=== PATIENT | male | born 1970 | race Hispanic/Latino ===

== ENCOUNTER 2024-05-06 09:33 | Emergency (ER) | payer OTHER, SELFPAY ==
[2024-05-06 09:42] VITALS: BP 141/80; PULSE 78; RESP 16; TEMP 36.9; O2SAT 97; BMI 28.4
--- NOTE | 2024-05-06 11:14 | ED_ITS ---
HPI - Neck Pain/Injury <Fany Tam PA-C - Last Filed: 05/06/24 13:32> General Chief Complaint: Neck Pain/Injury Stated Complaint: LT side neck swollen; px when swallowing Time Seen by Provider: 05/06/24 11:20 Mode of arrival: Family Vehicle History of Present Illness HPI Narrative: Mr. Lee is a very pleasant 53-year-old gentleman with a past medical history of hyperlipidemia who presents to the emergency department for left-sided neck mass x 7 days. Patient states on Wednesday he noticed the left side of his neck became swollen and has been progressively gotten worse. He has pain on the left side of his throat with swallowing. He is still able to tolerate liquids, solids, secretions. States that he occasionally has a sensation that he needs to belch but he has trouble getting it entirely up. He denies any flu-like symptoms, fevers, chills, night sweats, nausea, vomiting, diarrhea, cough, ear pain, dental pain. He does not smoke cigarettes or use chewing tobacco. Surgical history includes deviated septum repair. He took ibuprofen prior to arrival. Reports some of his coworkers were sick about 3 weeks ago. Related Data Previous Rx's Medication Instructions Recorded amoxicillin 875 mg-potassium 1 tab PO BID 7 days #14 tabs 05/06/24 clavulanate 125 mg tablet Allergies Allergy/AdvReac Type Severity Reaction Status Date / Time No Known Drug Allergies Allergy Verified 05/06/24 09:46 Review of Systems <Fany Tam PA-C - Last Filed: 05/06/24 13:32> Review of Systems ROS Unobtainable: All systems reviewed & are unremarkable except as noted in HPI and below Patient History <Fany Tam PA-C - Last Filed: 05/06/24 13:32> Social History Smoking Status: Former smoker Smoking Status: Former smoker tobacco type: cigarettes Exam <Fany Tam PA-C - Last Filed: 05/06/24 13:32> Narrative Exam Narrative: GENERAL: 53 year old patient appears stated age. Well-developed patient, in no acute distress. HEAD: Atraumatic. Normocephalic. EYES: Extraocular motions intact. No scleral icterus. No injection or drainage. ENT: Normal TMs bilaterally. Nose without bleeding, purulent drainage. Throat with mild posterior oropharyngeal erythema, no tonsillar exudates, uvula is midline with no tonsillar hypertrophy. No dental tenderness or visible dental abscess. Just below the angle of the left mandible, there is a approximately 2- 1/2 cm round firm immobile mass. No overlying erythema or increased warmth. NECK: Trachea midline. Cervical ROM intact. Left-sided neck swelling. CARDIOVASCULAR: Regular rate and rhythm. RESPIRATORY: ?Nonlabored respirations. ?Speaking in clear, full sentences. ?Clear to auscultation. Breath sounds equal bilaterally. No wheezes, rales, or rhonchi. ? NEURO: AOx3. ?Clear speech. ?Moves all 4 extremities appropriately. SKIN: No rash or erythema of visible areas Initial Vital Signs Initial Vital Signs: Vital Signs Temperature 98.4 F 05/06/24 09:42 Pulse Rate 78 05/06/24 09:42 Respiratory Rate 16 05/06/24 09:42 Blood Pressure 141/80 H 05/06/24 09:42 Pulse Oximetry 97 05/06/24 09:42 Oxygen Delivery Method Room Air 05/06/24 09:42 <Miky Cardenas MD - Last Filed: 05/06/24 20:52> Initial Vital Signs Initial Vital Signs: Vital Signs Temperature 98.4 F 05/06/24 09:42 Pulse Rate 78 05/06/24 09:42 Respiratory Rate 16 05/06/24 09:42 Blood Pressure 141/80 H 05/06/24 09:42 Pulse Oximetry 97 05/06/24 09:42 Oxygen Delivery Method Room Air 05/06/24 09:42 Course <Fany Tam PA-C - Last Filed: 05/06/24 13:32> Orders Ordered: Discontinued Medications Dexamethasone (Dexamethasone 10 Mg/Ml Vial) 10 mg IV NOW ONE Stop: 05/06/24 11:13 Last Admin: 05/06/24 11:38 Dose: 10 mg Documented By: MABLE Vital Signs Vital signs: Vital Signs - 8 hr 05/06/24 13:32 Pulse Rate 64 Respiratory Rate 17 Blood Pressure 137/79 Pulse Oximetry 97 Oxygen Delivery Method Room Air <Miky Cardenas MD - Last Filed: 05/06/24 20:52> Orders Ordered: Discontinued Medications Dexamethasone (Dexamethasone 10 Mg/Ml Vial) 10 mg IV NOW ONE Stop: 05/06/24 11:13 Last Admin: 05/06/24 11:38 Dose: 10 mg Documented By: MABLE Vital Signs Vital signs: Vital Signs - 8 hr 05/06/24 13:32 Pulse Rate 64 Respiratory Rate 17 Blood Pressure 137/79 Pulse Oximetry 97 Oxygen Delivery Method Room Air MDM - Neck Pain/Injury <Fany Tam PA-C - Last Filed: 05/06/24 13:32> Lab Data 05/06/24 11:25 05/06/24 11:25 Labs: Lab Results 05/06/24 Range/Units 11:25 WBC 5.4 (4.5-11.0) X10^3/uL RBC 4.65 (4.5-5.9) X10^6/uL Hgb 13.9 (13.5-17.5) g/dL Hct 41.4 (41-53) % MCV 89.0 (80-100) fL MCH 29.9 (26-34) PG MCHC 33.6 (30-36) % RDW 13.6 (11.6-14.8) % Plt Count 190 (150-400) X10^3/uL Neut % (Auto) 70.9 (50-75) % Lymph % (Auto) 20.1 L (25-40) % [place] % (Auto) 6.1 (3-14) % Eos % (Auto) 1.8 L (2-4) % Baso % (Auto) 1.1 (0-2) % Neut # (Auto) 3900 (2706-9537) /uL Lymph # (Auto) 1100 (7164-6910) /uL [place] # (Auto) 300 (0-900) /uL Eos # (Auto) 100 (0-450) /uL Baso # (Auto) 100 (0-100) /uL Sodium 141 (137-145) mmol/L Potassium 3.9 (3.4-5.1) mmol/L Chloride 104 (98-107) mmol/L Carbon Dioxide 27 (22-32) mmol/L BUN 14 (9-20) mg/dL Creatinine 0.86 (0.66-1.25) mg/dL Estimated GFR > 60 (>60) mL/min BUN/Creatinine Ratio 16.3 (6-22) Glucose 95 (70-100) mg/dL Calcium 10.0 (8.4-10.2) mg/dL Total Bilirubin 1.1 (0.2-1.3) mg/dL AST 36 (17-59) IU/L ALT 41 (<50) IU/L Alkaline Phosphatase 95 (38-126) U/L Total Protein 8.3 H (6.3-8.2) g/dL Albumin 4.7 (3.5-5.0) g/dL Globulin 3.6 (1.7-4.1) g/dL Albumin/Globulin Ratio 1.3 (1.0-2.8) Monoscreen Negative (Negative) Group A Strep (PCR) Negative (Negative) Imaging Data CT Soft Tissue NEck: Radiologist's Impression: PROCEDURE: CT SOFT TISSUE NECK W CON INDICATIONS: Left sided neck mass; pain w swallowing TECHNIQUE: After the administration of intravenous contrast, 3.0 mm axial sections acquired from the sella to the aortic arch. Additional oblique axial 3.0 mm sections acquired through the pharynx. 3 mm thick coronal and sagittal reformats were generated. For radiation dose reduction, the following was used: automated exposure control. COMPARISON: None. FINDINGS: Image quality: Excellent. Bone: No acute fracture or dislocation. Mild eburnation of the condylar processes of the temporomandibular joints bilaterally (4/59; 4/28), which can be seen with developing osteoarthritis. Alignment: Straightening of the cervical lordosis. Muscles: Overall muscle bulk is preserved. Neck spaces: Minimal asymmetric enlargement of the left submandibular gland secondary to a 3 mm obstructing calculus in the proximal submandibular duct (2/38). Additional 7 mm calculus at the distal right submandibular duct without proximal ductal dilatation (2/38). The parotid, sugar reprocess operator head, submandibular, parapharyngeal, pharyngeal mucosal, retropharyngeal, and perivertebral spaces are otherwise within normal limits. Orbits: Optic globes, intraconal/extraconal fat spaces, and extraocular muscles within normal limits. No retrobulbar mass. Thyroid gland: Within normal limits. Airway: Visualized trachea within normal limits. Esophagus: No abnormal mural thickening of the visualized esophagus. Lymph nodes: No cervical or medial supraclavicular lymphadenopathy. Vessels: No aneurysmal dilatation of the visualized vasculature. Lung apices: No pneumothorax in the visualized lung apices. Sinuses: Visualized paranasal sinuses, mastoid air cells, and middle ear cavities are clear. Dentition: Within normal limits. Soft tissues: Mild thickening of the left platysma (2/41) with nonenlarged level 1 B lymph nodes (2/41), likely reactive to the submandibular pathology. IMPRESSION: 1. Likely acute left submandibular sialadenitis secondary to a proximal 3 mm obstructing ductal calculus. 2. Likely chronic 7 mm right distal submandibular ductal calculus without proximal ductal dilatation. MDM Narrative Medical decision making narrative: 53-year-old gentleman with a past medical history of hyperlipidemia who presents to the emergency department for left-sided neck mass x 7 days. Differential diagnosis includes but is not limited to lymphadenopathy, lymphoma, mononucleosis, strep pharyngitis, abscess, mass, neoplasm, etc. On exam the patient is in no acute distress, nontoxic appearing, vital signs appropriate. Has a firm mass on the left side of his neck just below the angle of the mandible. There is no overlying skin changes or fluctuance. He is mild posterior oropharyngeal erythema however oropharynx is widely patent and uvula is midline. He is not having any other symptoms. We will check a strep, mono, CBC, CMP, CT soft tissue neck with IV contrast. We will treat with Decadron. Labs reveal normal WBC count 5.4, platelets 190, normal electrolytes and renal function with a creatinine of 0.86. Glucose 95. Negative mono screen and negative strep swab. CT soft tissue neck reveals likely acute left submandibular sialadenitis secondary to a proximal 3 mm obstructing ductal calculus. There is also a likely chronic 7 mL right distal submandibular ductal calculus without proximal ductal dilatation. Recommended warm compresses, increase hydration, sucking sour candy to help increased elevation and clear salivary duct stone. We will also treat patient with Augmentin b.i.d. x7 days for potential bacterial infection of salivary gland. After discussing findings with the patient and provided him with a copy of CT scan, he does notice that his mouth has been more dry recently. In addition to supportive care and antibiotics, recommended follow up with ENT and PCP. Discussed strict ED return precautions. Patient verbalized understanding of all information is agreeable with the plan. He is stable for discharge home. <Miky Cardenas MD - Last Filed: 05/06/24 20:52> Lab Data Labs: Lab Results 05/06/24 Range/Units 11:25 WBC 5.4 (4.5-11.0) X10^3/uL RBC 4.65 (4.5-5.9) X10^6/uL Hgb 13.9 (13.5-17.5) g/dL Hct 41.4 (41-53) % MCV 89.0 (80-100) fL MCH 29.9 (26-34) PG MCHC 33.6 (30-36) % RDW 13.6 (11.6-14.8) % Plt Count 190 (150-400) X10^3/uL Neut % (Auto) 70.9 (50-75) % Lymph % (Auto) 20.1 L (25-40) % [place] % (Auto) 6.1 (3-14) % Eos % (Auto) 1.8 L (2-4) % Baso % (Auto) 1.1 (0-2) % Neut # (Auto) 3900 (9544-0644) /uL Lymph # (Auto) 1100 (9024-2070) /uL [place] # (Auto) 300 (0-900) /uL Eos # (Auto) 100 (0-450) /uL Baso # (Auto) 100 (0-100) /uL Sodium 141 (137-145) mmol/L Potassium 3.9 (3.4-5.1) mmol/L Chloride 104 (98-107) mmol/L Carbon Dioxide 27 (22-32) mmol/L BUN 14 (9-20) mg/dL Creatinine 0.86 (0.66-1.25) mg/dL Estimated GFR > 60 (>60) mL/min BUN/Creatinine Ratio 16.3 (6-22) Glucose 95 (70-100) mg/dL Calcium 10.0 (8.4-10.2) mg/dL Total Bilirubin 1.1 (0.2-1.3) mg/dL AST 36 (17-59) IU/L ALT 41 (<50) IU/L Alkaline Phosphatase 95 (38-126) U/L Total Protein 8.3 H (6.3-8.2) g/dL Albumin 4.7 (3.5-5.0) g/dL Globulin 3.6 (1.7-4.1) g/dL Albumin/Globulin Ratio 1.3 (1.0-2.8) Monoscreen Negative (Negative) Group A Strep (PCR) Negative (Negative) Discharge Plan Departure Patient Disposition: Home Clinical Impression: Sialadenitis, Calculus, salivary duct Instructions: DI for Parotitis-Adult Activity Restrictions/Additional Instructions: Dear Mr. Lee, Thank you for coming to the emergency department. Today you were evaluated for left-sided neck swelling and pain. You tested negative for strep, mononucleosis, and your blood work was reassuring. The CT scan of your neck revealed sialadenitis which is swelling and inflammation of the salivary gland which is being caused by an obstructing salivary duct stone. 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 The treatment for this is increasing salivation by using hard sour candies such as sour lemon candy in addition to using warm compresses and gentle massage and increasing hydration. I have also prescribed you an antibiotic to take twice a day for the next week to cover for any infection of the salivary gland. Please call to schedule an appointment with [facility] at [phone] for further evaluation. Please return to the emergency department if you develop any new or worsening symptoms, inability to swallow, fevers, worsening swelling or any other concerns. Please take ibuprofen and/or Tylenol for pain. Please take Ibuprofen (Motrin/Advil) or Acetaminophen (Tylenol) for pain. These are available over the counter. You may take Ibuprofen 600 mg every 8 hours with food for pain. You may also take Acetaminophen 650 mg every 4-6 hours for pain. Do not exceed 3000 mg of Tylenol a day as this can cause liver damage. Do not drink alcohol with either of these medications. Please follow up with your primary care doctor within the next 2-3 days for ER follow-up. (If you do not have a PCP you can call [phone]. ?to schedule an appointment with an [facility] Primary Care Provider) IF YOU DEVELOP ANY NEW OR WORSENING SYMPTOMS, RETURN TO THE ER! Please read the attached instructions, they highlight more specific treatments and interventions for you at home. Thank you for letting me participate in your care, Fany Tam PA-C Prescriptions: New amoxicillin-pot clavulanate 875-125 mg tablet 1 tab PO BID 7 Days Qty: 14 0RF Stand Alone Forms: Patient Portal/API/Survey ED Sign-out <Miky Cardenas MD - Last Filed: 05/06/24 20:52> Cosign ED Attending Cosignature Attestation: I was immediately available in the department for consultation. This documentation has been reviewed and I agree with assessment and plan. Supervised by Miky Cardenas MD
[2024-05-06 11:34] LABS: Add Manual Diff / Slide Review NO; Basophils Absolute Auto 100 /uL (0-100); Basophils Percent Auto 1.1 % (0-2); Eosinophils Absolute Auto 100 /uL (0-450); Eosinophils Percent Auto 1.8 % (2-4); Hematocrit 41.4 % (41-53); Hemoglobin 13.9 g/dL (13.5-17.5); Lymphocytes Absolute Auto 1100 /uL (1100-4500); Lymphocytes Percent Auto 20.1 % (25-40); Mean Corpuscular HGB Conc 33.6 % (30-36); Mean Corpuscular Hemoglobin 29.9 PG (26-34); Monocytes Absolute Auto 300 /uL (0-900); Monocytes Percent Auto 6.1 % (3-14); Neutrophils Absolute Auto 3900 /uL (1500-7000); Neutrophils Percent Auto 70.9 % (50-75); Platelet Count 190 X10^3/uL (150-400); Red Blood Cell Count 4.65 X10^6/uL (4.5-5.9); Red Cell Distribution Width 13.6 % (11.6-14.8); White Blood Cell Count 5.4 X10^3/uL (4.5-11.0)
[2024-05-06] MEDS: DEXAMETHASONE 10 MG/ML VIAL IV (11:38)
[2024-05-06 11:47] LABS: Alanine Aminotransferase 41 IU/L (<50); Albumin 4.7 g/dL (3.5-5.0); Albumin Globulin Ratio 1.3 (1.0-2.8); Alkaline Phosphatase 95 U/L (38-126); Aspartate Aminotransferase 36 IU/L (17-59); BUN Creatinine Ratio 16.3 (6-22); Bilirubin Total 1.1 mg/dL (0.2-1.3); Blood Urea Nitrogen 14 mg/dL (9-20); Carbon Dioxide 27 mmol/L (22-32); Chloride 104 mmol/L (98-107); Estimated Glomerular Filt Rate > 60 mL/min (>60); Globulin 3.6 g/dL (1.7-4.1); Glucose 95 mg/dL (70-100); HEMOLYSIS < 15 (0-50); Potassium 3.9 mmol/L (3.4-5.1); Sodium 141 mmol/L (137-145); Total Protein 8.3 g/dL (6.3-8.2)
[2024-05-06 11:48] LABS: Strep Grp A by PCR Rapid Negative (Negative)
[2024-05-06 12:12] LABS: Monotest Negative (Negative)
[2024-05-06 13:32] VITALS: BP 137/79; PULSE 64; RESP 17; O2SAT 97
== END 2024-05-06 13:35 | disposition home or self-care (01) ==
PROVIDERS: Emergency Provider Physician Assistant
DX: K11.20 Sialoadenitis, unspecified (principal); K11.5 Sialolithiasis; Z87.891 Personal history of nicotine dependence
CPT/HCPCS: 70491; 80053; 85025; 86318; 87651; 96374; 99283; 99284; J1100; Q9967

== ENCOUNTER 2024-10-29 08:15 | Emergency (ER) | payer OTHER, SELFPAY ==
--- NOTE | 2024-10-29 08:16 | ED.GENADULT ---
HPI - General Adult General Chief complaint: Recheck/Abnormal Lab/Rx Stated complaint: 2days post surgery salivary ducts: px increasing Time Seen by Provider: 10/29/24 08:16 History of Present Illness HPI narrative: Patient is a 54-year-old male who has past medical history of hyperlipidemia with a history of salivary duct calculus states that he is 2 days postop after having the oculus removed to his right submandibular region. States that this was at [facility]. He states that he was discharged home with steroids antibiotics and was told to take Tylenol for pain. He states that he is having persistent pain to his right submandibular region denies any increased difficulty swallowing denies any increased trismus denies any other symptoms at this time. He states that he has been trying Tylenol but is having persistent pain therefore came into the ED for further evaluation treatment. Upon my exam he is speaking in full sentences he is protecting airway he is tolerating his secretions. He is well-appearing nontoxic, he states that he is really only here for pain control. Related Data Previous Rx's ?Medication ?Instructions ?Recorded oxycodone-acetaminophen 5 mg-325 1 tab PO Q8H PRN pain 3 days #9 10/29/24 mg tablet (Percocet) tabs Allergies Allergy/AdvReac Type Severity Reaction Status Date / Time No Known Drug Allergies Allergy Verified 10/29/24 08:23 Review of Systems Review of Systems Narrative: General: Denies fever, chills, weight loss HEENT: Positive neck/sore throat pain Denies headache, eye drainage, eye irritation, head trauma, voice change Cardiovascular: Denies any chest pain, palpitations, tachycardia Respiratory: Denies any shortness of breath, cough, wheeze, stridor GI/: Denies any abdominal pain, nausea, vomiting, diarrhea, bright red blood per rectum, melanotic stools, urinary frequency, urinary retention, dysuria, hematuria MSK: Denies any joint pain, muscle pains, swelling Skin: Denies any rashes, lesions, discoloration Neuro: Denies any headache, lightheadedness, dizziness, fainting, weakness Psych: Denies SI/HI Patient History tobacco type: cigarettes Exam Narrative Exam Narrative: General: Cooperative, well-developed, not in acute distress HEENT: Normocephalic, atraumatic, PERRLA, normal sclera, eyelids normal, mild tenderness to palpation of the submandibular region but no overlying edema ecchymosis crepitus or any other symptoms Neck: Active full range of motion, atraumatic Chest: Normal to inspection, negative crepitus, no overlying erythema ecchymosis Respiratory: Normal respiratory effort, not in acute respiratory distress, clear to auscultation bilaterally negative cough, wheeze, tachypnea, rhonchi, rales Cardiology: Regular rate rhythm negative gallop, murmur, rubs GI/: No tenderness to palpation, soft, non rigid, normal to inspection, exam deferred MSK: Full active range of motion in all 4 extremities, atraumatic, no tenderness to palpation of any bony prominences Skin: No rashes or lesions noted Neuro: Alert awake oriented x3, moves all 4 extremities spontaneously, cranial nerves intact, able to answer all questions appropriately follows commands appropriately Psych: Cooperative, negative suicidal or homicidal ideations Medical Decision Making MDM Narrative Medical decision making narrative: Patient is a 54-year-old male with a past medical history of hyperlipidemia salivary calculus stones, patient states that he had a 7 mm stone removed at [facility] 2 days ago. States he was discharged home with steroids and antibiotics he has been able to tolerate this but states that he is having pain to his right submandibular region, he denies any worsening symptoms he states that his pain is just not controlled after Tylenol. He does have an appointment on November 06 for his routine follow up. On my exam he is speaking in full sentences protecting airway, just a mild tenderness to palpation of the submandibular region to the right side but otherwise he is tolerating his secretions he is able to tolerate p.o. liquids and solids. He states that he is only here for pain control, did offer additional lab work imaging however he states that he will just wants to trial some pain medication, states that he will follow up/call his surgeon tomorrow. Patient will be given dose of oxycodone here sent home with a short supply and instructed to follow up with his primary care doctor as well as his surgeon who performed the procedure, did give him strict return precautions he verbalized understanding of this and agrees to being discharged home with outpatient follow up Review of records does show that patient was seen here on 09/28/2024 and was diagnosed with a 7 mm stone along the right submandibular gland duct consistent with salivary calculus stone. Discharge Plan Departure Patient Disposition: Home Clinical Impression: Post-op pain Activity Restrictions/Additional Instructions: Please return immediately to the emergency department if you are unable to tolerate any liquids or solids by mouth Please continue taking all your other medications that you were prescribed by over previous provider Please follow up with your primary care doctor and your surgeon Please read the discharge instructions sheet carefully and bring all papers to all doctor follow-up visits, as it may contain information that your doctor may want to see. Disease processes change and evolve, if your symptoms worsen or if you develop any new symptoms that are concerning to you please return for evaluation. Your evaluation today does not show any evidence of any life-threatening/serious illnesses requiring admission to the hospital or surgery. Please follow-up with your doctor for re-evaluation in approximately 1 day. Seek immediate medical attention for any worrisome symptoms. *If you do not have a primary care provider please contact the [facility] Resource line at [phone]. They will ask some questions about your medical history and help get you set up with a doctor in the community. Prescriptions: New oxycodone-acetaminophen [Percocet] 5-325 mg tablet 1 tab PO Q8H PRN (Reason: pain) 3 Days Qty: 9 0RF Stand Alone Forms: Patient Portal/API
[2024-10-29 08:23] VITALS: BP 144/82; PULSE 79; RESP 18; TEMP 36.7; O2SAT 96; BMI 28.4
== END 2024-10-29 08:42 | disposition home or self-care (01) ==
PROVIDERS: Emergency Provider Student in an Organized Health Care Education/Training Program
DX: G89.18 Other acute postprocedural pain (principal); R68.84 Jaw pain
CPT/HCPCS: 99283